=== PATIENT | male | born 1995 | race Caucasian/White ===

== ENCOUNTER 2017-02-03 17:26 | Emergency (ER) | payer OTHER ==
[~2017-02-03] VITALS: Ht 180.3 cm; Wt 93.2 kg
[2017-02-03 17:28] VITALS: BP 156/91; TEMP 98.1
[2017-02-03] MEDS ORDERED: ZOLOFT 50MG50 MG PO (17:31)
[2017-02-03 19:12] VITALS: PULSE 90
== END 2017-02-03 19:15 | disposition home or self-care (01) ==
LOC: COL.ER 17:26
DX: S01.111A Laceration without foreign body of right eyelid and periocular area, initial encounter (principal); V00.138A Other skateboard accident, initial encounter; Y93.51 Activity, roller skating (inline) and skateboarding

== ENCOUNTER 2017-02-09 11:33 | Emergency (ER) | payer OTHER ==
[~2017-02-09 11:33] MED LIST: ZOLOFT 50MG50 MG PO
[2017-02-09 11:37] VITALS: BP 127/57; PULSE 68; TEMP 97.3
== END 2017-02-09 11:43 | disposition home or self-care (01) ==
LOC: COL.ER 11:33
DX: Z48.02 Encounter for removal of sutures (principal)